=== PATIENT | male | born 1930 | race Caucasian/White ===

== ENCOUNTER 2016-07-28 11:05 | Observation (INO) | payer MEDICARE, OTHER ==
[~2016-07-28 11:05] MED LIST: IPRATR-ALBUTEROL3 ML NEB
--- NOTE | 2016-07-30 14:34 | NUR ---
1330 - PATIENT DISCHARGED HOME/MD ORDER. IV REMOVED. APPTS. AND PRESCRIPTIONS GIVEN. OUT VIA WHEELCHAIR. HOME WITH DAUGHTER VIA PRIVATE VEHICLE.
== END 2016-07-30 13:30 | disposition home health service (06) ==
LOC: ER 11:05 → MED 16:36
PROVIDERS: ADMIT Internal Medicine
DX: S32.039A Unspecified fracture of third lumbar vertebra, initial encounter for closed fracture (principal); S32.029A Unspecified fracture of second lumbar vertebra, initial encounter for closed fracture; H54.0 Blindness, both eyes; J60 Coalworker's pneumoconiosis; I12.9 Hypertensive chronic kidney disease with stage 1 through stage 4 chronic kidney disease, or unspecified chronic kidney disease; N18.9 Chronic kidney disease, unspecified; E03.9 Hypothyroidism, unspecified; K21.9 Gastro-esophageal reflux disease without esophagitis; F32.9 Major depressive disorder, single episode, unspecified; Z82.49 Family history of ischemic heart disease and other diseases of the circulatory system; Z79.899 Other long term (current) drug therapy; W19.XXXA Unspecified fall, initial encounter
CPT/HCPCS: 72148; 73522; 96372; 96374; 97162-GP; 97166; G0378; J1650; J2550